=== PATIENT | female | born 1960 | race African-American/Black ===

== ENCOUNTER → 2020-09-27 | Outpatient (CLI) | payer BC, OTHER ==
--- NOTE | 2020-09-27 12:20 | RAD ---
EXAM: Carotid Doppler sonogram. HISTORY: Cerebral infarction. Atherosclerosis. TECHNIQUE: Barrios scale and color Doppler sonographic evaluation of the neck with spectral waveform jace lysis was performed and static images are submitted for review. FINDINGS: The peak systolic velocity within the right common carotid artery is 106 cm/sec. The peak s ystolic velocity within the right internal carotid artery is 62 cm/sec and the end diastolic velocity within the right internal carotid artery is 24 cm/sec. The right ICA/CCA ratio is 0.58. The peak systolic velocity within the left common carotid artery is 115 cm/sec. The peak systolic lyly ocity within the left internal carotid artery is 54 cm/sec and the end diastolic velocity within the left internal carotid artery is 17 cm/sec. The left ICA/CCA ratio is 0.47. There is normal antegrade flow within both vertebral arteries. IMPRESSION: No Doppler evidence of hemodynamically significant stenosis. PQRS Compliance Statement - Stenosis calculations for CT, MR and conventional angiography are based u ferny measurement of the distal ICA diameter in accordance with the NASCET methodology. Stenosis calcu lations for carotid ultrasound studies are derived from validated velocity criteria which are known t o correlate with the NASCET methodology. Electronically signed by: Judi Guan MD (09/27/2020 12:18 PM) [id number]
== END ==
LOC: US 11:14
PROVIDERS: ATTEND Family Medicine
DX: I63.9 Cerebral infarction, unspecified (principal); Z86.73 Personal history of transient ischemic attack (TIA), and cerebral infarction without residual deficits
CPT/HCPCS: 93880

== ENCOUNTER 2021-08-15 01:05 | Inpatient (IN) | payer BC, OTHER ==
[~2021-08-15] VITALS: Ht 175.3 cm; Wt 72.5 kg
--- NOTE | 2021-08-15 01:57 | PHYS DOC ---
Past History Past Medical History: Cancer General Adult HPI: HPI: Patient is a [age] year old [sex] who presents with [] Review of Systems: Review of Systems: Constitutional: Denies fever or chills Eyes: Denies redness or eye pain HENT: Denies nasal congestion or sore throat Respiratory: Denies cough or shortness of breath Cardiovascular: Denies chest pain or palpitations GI: Denies abdominal pain, nausea, or vomiting : Denies dysuria or hematuria Musculoskeletal: Denies back pain or joint pain Integument: Denies rash or skin lesions Neurologic: Denies headache, focal weakness or sensory changes Complete systems were reviewed and found to be within normal limits, except as documented in this note. Current Medications: Current Meds: Current Medications Medications (Trade) Dose Ordered Sig/Juan Francisco Start Time Stop Time Status Last Admin Dose Admin Iohexol (Omnipaque 350 Mg/ml) 100 ml 1X ONCE 08/15/21 01:30 08/15/21 01:31 UNV Piperacillin Sod/ Tazobactam Sod 4.5 gm/Sodium Chloride 50 ml @ 100 mls/hr 1X ONCE 08/15/21 01:30 08/15/21 01:59 UNV Sodium Chloride 1,000 ml @ 1,000 mls/hr 1X ONCE 08/15/21 01:30 08/15/21 02:29 UNV Physical Exam: PE: Constitutional: Well developed, well nourished, no acute distress, non-toxic appearance HENT: Normocephalic, atraumatic Eyes: PERRL, EOMI, conjunctiva normal, no discharge Neck: Normal range of motion, no tenderness, supple Lungs & Thorax: No respiratory distress, equal chest rise and fall Abdomen: Soft, no tenderness Skin: Warm, dry, no erythema, no rash Back: No tenderness, no CVA tenderness Extremities: No tenderness, ROM intact, no edema Neurologic: Alert and oriented X 3, normal motor function, normal sensory function, no focal deficits noted Psychologic: Affect normal, judgment normal EKG: EKG: @0149 Sinus tachycardia at 108bpm, NO ST elevation, QRS 68ms, QT/QTc 298/403ms Radiology/Procedures: Radiology/Procedures: [] Heart Score: C/O Chest Pain: N/A Course & Med Decision Making: Course & Med Decision Making Pertinent Labs and Imaging studies reviewed. (See chart for details) Patient requiring admission for further evaluation and treatment. Discussed with Dr. Mancia (PCP) who is in agreement with admission. Discussed findings and plan with patient, who acknowledges understanding and agreement. Clotilde Disclaimer: Clotilde Disclaimer: This electronic medical record was generated, in whole or in part, using a voice recognition dictation system. Departure Departure: Impression: Primary Impression: Multifocal pneumonia Additional Impression: Hypoxia Disposition: ADMITTED INPATIENT Admitting Physician: Hina Mancia Condition: GUARDED Referrals: HINA MANCIA MD (PCP) Critical Care Time Critical care time was 30 minutes which includes time at bedside, spent in discussion of patient's care with specialists and/or family members, with interpretation of laboratory and/or radiological studies and is exclusive of procedures. ARTHUR DE LA CRUZ DO Aug 15, 2021 01:57
[2021-08-15] MEDS ORDERED: CONTRAST GIVEN. MC PRN (02:15)
[2021-08-15] MEDS ORDERED: IV NORMAL SALINE 1,000ML 1,000 ML IV ONE (02:30)
[2021-08-15] MEDS ORDERED: IOHEXOL 350 MG/ML 100 ML VIAL. IV ONE (02:30)
[2021-08-15] MEDS ORDERED: PIPERACILLIN/TAZOBACTAM 4.5 GM in IV NORMAL SALINE 50ML 50 ML IV ONE (02:30)
[2021-08-15] MEDS ORDERED: IV NORMAL SALINE 50ML 50 ML ONE (02:36)
[2021-08-15] MEDS ORDERED: PIPERACILLIN/TAZOBACTAM 4.5 GM VIAL IV ONE (02:36)
[2021-08-15 02:45] LABS: BASO # 0.1 x10^3/uL (0.0-0.2); BASO % 1 % (0-3); EOS # 0.1 x10^3/uL (0.0-0.7); EOS % 2 % (0-3); HEMATOCRIT 30.1 % (36.0-47.0); HEMOGLOBIN 9.8 g/dL (12.0-15.5); LYMPH # 0.2 x10^3/uL (1.0-4.8); LYMPH % 3 % (24-48); MEAN CORPUSCULAR HEMOGLOBIN 26 pg (25-35); MEAN CORPUSCULAR HGB CONC 33 g/dL (31-37); MEAN CORPUSCULAR VOLUME 81 fL (79-100); MONO # 0.1 x10^3/uL (0.0-1.1); MONO % 1 % (0-9); NEUT # 7.4 x10^3uL (1.8-7.7); NEUT % 93 % (31-73); PLATELET COUNT 221 x10^3/uL (140-400); RED BLOOD COUNT 3.72 x10^6/uL (3.50-5.40); RED CELL DISTRIBUTION WIDTH 19.7 % (11.5-14.5)
[2021-08-15 02:55] LABS: ANION GAP 9 (6-14); BLOOD UREA NITROGEN 20 mg/dL (7-20); BUN/CREATININE RATIO 25 (6-20); CALCIUM 9.5 mg/dL (8.5-10.1); CARBON DIOXIDE 31 mmol/L (21-32); CHLORIDE 95 mmol/L (98-107); CREATININE 0.8 mg/dL (0.6-1.0); GFR 88.5; GLUCOSE 145 mg/dL (70-99); POTASSIUM 3.9 mmol/L (3.5-5.1); SODIUM 135 mmol/L (136-145)
[2021-08-15] MEDS ORDERED: BENZONATATE 100 MG CAPSULE. PO ONE (03:00)
[2021-08-15 03:12] LABS: ALBUMIN 2.9 g/dL (3.4-5.0); ALBUMIN/GLOBULIN RATIO 0.6 (1.0-1.7); ALK PHOS 81 U/L (46-116); ALT (SGPT) 17 U/L (14-59); AST (SGOT) 29 U/L (15-37); MAGNESIUM 2.2 mg/dL (1.8-2.4); TOTAL BILIRUBIN 0.4 mg/dL (0.2-1.0); TOTAL PROTEIN 7.7 g/dL (6.4-8.2)
--- NOTE | 2021-08-15 03:30 | RAD ---
CTA CHEST History: Dyspnea, hypoxia, history of cancer. Comparison: None. Technique: CTA of the pulmonary arteries with intravenous contrast. 3-D postprocessing was performed. Findings: Devices: Left chest Mediport with tip terminating in the region of the lower SVC. Pulmonary arteries: No pulmonary embolism. Aorta and great vessels: No aneurysm or dissection of the aortic arch or thoracic aorta. Thyroid: Heterogeneous thyroid with bilateral approximately 1.5 cm hypodense nodules. Mediastinum and mauricio: No mediastinal masses or adenopathy is seen. Esophagus: The visualized esophagus is normal. Heart: The heart is normal in size. There is no pericardial effusion. Airways, Lungs, Pleura: Right lung volume loss with anterior right lung subpleural reticulation. Diff use right upper middle and lower lobe airspace opacities and left upper lobe airspace opacities. No p leural effusion or pneumothorax. Upper abdomen: Limited evaluation of the upper abdomen is unremarkable. Osseous structures and soft tissues: Heterogeneous right breast, possibly postsurgical with masslike density, calcifications and diffuse skin thickening. Impression: 1. No pulmonary embolism, aortic aneurysm or aortic dissection. 2. Right lung and left upper lobe diffuse airspace opacities concerning for multifocal infection. 3. Heterogeneous multinodular thyroid. Recommend ultrasound for further evaluation. ------ Exposure: One or more of the following individualized dose reduction techniques were utilized for thi s examination: 1. Automated exposure control 2. Adjustment of the mA and/or kV according to patient size 3. Use of iterative reconstruction technique. Electronically signed by: Erasto Bergeron MD (08/15/2021 3:28 AM) [facility]
[2021-08-15] MEDS ORDERED: ACETAMINOPHEN 325 MG TABLET PO PRN (03:45)
[2021-08-15] MEDS ORDERED: ONDANSETRON PF 4 MG/2 ML VIAL. IVP PRN (03:45)
[2021-08-15] MEDS ORDERED: IV NORMAL SALINE 500ML 500 ML ONE ×2 (03:58→03:59)
[2021-08-15] MEDS ORDERED: VANCOMYCIN 1 GM VIAL. ONE (03:59)
[2021-08-15] MEDS ORDERED: VANCOMYCIN 1.75 GM in IV NORMAL SALINE 500ML 500 ML IV ONE (04:00)
[2021-08-15] MEDS: VANCOMYCIN PER PHARMACY MC PRN (05:44)
--- NOTE | 2021-08-15 05:44 | NUR ---
Pharmacy Vancomycin Dosing Note S:Consulted to monitor and dose vancomycin started 08/15/21. O:DIPTI RAM is a 60 year old F with Pneumonia, . Height: 5 feet, 9 inches Weight: 70.5 kg Wayne Body Weight: 66.20 Adjusted Body Weight: 67.92 Dosing Weight: Actual Other Antibiotics: LABS: Last BUN: 20 Last Creatinine: 0.8 Creatinine Clearance: 80 Last WBC: 8 Last Procalcitonin: Tmax (past 24 hours): Microbiology: I/O: Drug Levels: Last level: on at Last dose given 08/15/21 at 0530 Vancomycin Dosing: Loading Dose: 1750 mg x1 Dosing Weight: Actual Target Trough: 15-20 A: Based on: WT AND CRCL P: 1. Begin Vancomycin 1000 mg IV q12h 2. Follow up Trough level on 08/16/21 at 1730 3. Pharmacy will continue to monitor, follow and adjust therapy as needed. MARÍA UNDERWOOD RPH, 08/15/21 0544 Signed: 08/15/21 at 0545 by MARÍA UNDERWOOD RPH PHA Signed: 08/15/21 at 0545 by MARÍA UNDERWOOD RPH PHA
[2021-08-15] MEDS ORDERED: AMOX1TAB61 PO (06:13)
[2021-08-15] MEDS ORDERED: CRESTOR20 MG PO (06:13)
[2021-08-15] MEDS ORDERED: ASCO500C PO (06:13)
[2021-08-15] MEDS ORDERED: BENZ200C47 PO (06:13)
[2021-08-15] MEDS ORDERED: METO-239 PO (06:13)
[2021-08-15] MEDS ORDERED: CLOP75TA PO (06:13)
[2021-08-15] MEDS ORDERED: HYDR-2145 PO (06:13)
[2021-08-15] MEDS ORDERED: VITA25006 PO (06:13)
[2021-08-15] MEDS ORDERED: METF500T16 PO (06:13)
[2021-08-15] MEDS ORDERED: ONDA4TAB7 PO (06:13)
[2021-08-15] MEDS ORDERED: LISI20TA18 PO (06:13)
--- NOTE | 2021-08-15 06:14 | NUR ---
PT ADMITTED TO [facility] VIA EMS ACCOMPANIED BY STAFF MEMBER. PT AMBULATED FROM GURNEY TO BED W/ SUPERVISED ASSISTANCE. PT AOX4. VS OBTAINED. PT HAD NO COMPLAINTS OF PAIN AT THIS TIME. MEDICATION LIST WAS PROVIDED BY PATIENT. POC DISCUSSED W/ VERBALIZED UNDERSTANDING. CALL LIGHT IN REACH WILL CONTINUE TO MONITOR.
[2021-08-15 06:18] VITALS: BP 138/77
[2021-08-15] MEDS ORDERED: DEXTROSE 50% 25 GM / 50ML DISP.SYRIN. IV PRN (10:45)
[2021-08-15 10:52] VITALS: BP 160/82
[2021-08-15] MEDS ORDERED: PIP/TAZO PER PHARMACY MC PRN (11:00)
[2021-08-15] MEDS ORDERED: BENZONATATE 100 MG CAPSULE. PO PRN (11:00)
[2021-08-15] MEDS: DEXAMETHASONE SOD PHOS 4 MG/ML VIAL. IVP SCH ×3 (11:11→21:10)
[2021-08-15] MEDS: METOPROLOL SUCC 24HR ER 25 MG TAB.ER.24H. PO SCH (11:13)
[2021-08-15] MEDS: LISINOPRIL 20 MG TABLET PO SCH (11:14)
[2021-08-15] MEDS: ATORVASTATIN CALCIUM 20 MG TABLET PO SCH (11:14)
[2021-08-15] MEDS: CLOPIDOGREL BISULFATE 75 MG TABLET PO SCH (11:14)
[2021-08-15] MEDS: ASCORBIC ACID 1,000 MG TABLET PO SCH (11:14)
[2021-08-15] MEDS: hydroCHLOROthiazide 25 MG TABLET. PO SCH (11:15)
[2021-08-15] MEDS: PROMETH/CODEINE 6.25/10MG 5 ML SYRUP. PO PRN ×2 (11:16→21:51)
[2021-08-15] MEDS: FOLIC ACID 1 MG TABLET PO SCH (11:19)
[2021-08-15] MEDS: CHOLECALCIFEROL (VITAMIN D3) 1,000 UNIT TABLET PO SCH (11:21)
--- NOTE | 2021-08-15 11:48 | HP ---
DATE OF SERVICE: 08/15/2021 ADMIT DATE: 08/15/2021 HISTORY OF PRESENT ILLNESS: A 60-year-old female with history of breast cancer, radiation to her chest, which has severe damage to the skin. [facility] [place]. However, she developed severe coughing and shortness of breath and was unable to take a breath without getting extremely short of breath. The patient otherwise was brought in because she had an upper lobe pneumonia bilaterally and by the fact that the patient has a situation where she is somewhat immunocompromised, by the fact that she had received and does receive radiation therapy in [place] for her breast cancers. The patient's blood pressure 170/90, she had a pulse of 113, respiratory rate 18, temperature went up to 99.5, oxygen saturation 89 on room air, 2 liters at 93. PAST MEDICAL HISTORY: She has had AFib, congestive heart failure, hypercholesterolemia, hypertension, breast cancer, diabetes chemotherapy, radiation therapy, influenza vaccine. FAMILY HISTORY: Not obtainable. ALLERGIES: No known allergies. SOCIAL HISTORY: Denies smoking, alcohol or drug use. The patient is a FULL CODE. REVIEW OF SYSTEMS: She denies any headaches, visual change, blurred vision, double vision. Does have shortness of breath, a very frequent cough. About every 15-20 seconds, she is coughing. Does not have any nausea, vomiting, melena, hematochezia or hematemesis. Neurologically, she is baseline stable, alert, pleasantly. PHYSICAL EXAMINATION: VITAL SIGNS: As indicated, blood pressure 170/90, respiratory rate 18, pulse 110, temperature 99.3, 2 liters 93. HEENT: The patient's head was atraumatic, normocephalic. Eyes: PERRLA without jaundice, looks in agony. Mouth and throat normal. NECK: Supple. LUNGS: Diminished, poor movement of air. CARDIOVASCULAR: Irregular irregular rhythm. The chest wall is markedly scarred from radiation dill. ABDOMEN: The patient's abdomen is soft, nontender, no rebound or guarding. Positive bowel sounds, no hepatosplenomegaly noted. EXTREMITIES: No clubbing, cyanosis, nor edema. NEUROLOGIC: The patient was alert and oriented x 3. Speech fluent, spontaneous, appropriate. Cranial nerves 2-12 grossly intact. LABORATORY DATA: White count 8, hemoglobin and hematocrit 9 and 30. Sodium 135, BUN and creatinine 20 and 0.8, glucose 145. Albumin 2.9. Serology: Rapid SARS negative. I actually did a CTA, shows multinodular thyroid as well as right and left upper lobe diffuse airspace opacities concerning for multifocal infection. Respiratory rate up to 24. IMPRESSION: Bilateral lobe pneumonia, history of radiation therapy for breast cancer, immunosuppression, essential hypertension, sinus tachycardia, ____ vanco, Zosyn, steroids. Awaiting back from lab for her PCR COVID before we initiate either remdesivir or the other situation protocol for SARS. ALBERTO/LAURA/SHERLYN DR: ALBERTO/terry TID: [id number]
[2021-08-15] MEDS ORDERED: PIPERACILLIN/TAZOBACTAM 4.5 GM in IV NORMAL SALINE 50ML 50 ML IV SCH (12:00)
[2021-08-15] MEDS: INSULIN LISPRO 300 UNITS/3 ML VIAL. SQ SCH ×3 (12:00→17:45)
[2021-08-15] MEDS: BENZONATATE 100 MG CAPSULE. PO PRN ×2 (12:42→21:09)
[2021-08-15] MEDS: PIPERACILLIN/TAZOBACTAM 4.5 GM in IV NORMAL SALINE 50ML 50 ML IV SCH ×2 (13:00→19:00)
[2021-08-15] MEDS: ONDANSETRON ODT 4 MG TAB.RAPDIS PO SCH ×2 (13:39→21:09)
--- NOTE | 2021-08-15 15:22 | NUR ---
Wound/Ostomy Care Wound Type/Assessment: wound consult for right breast wound. Pt is a current pt of [facility], so is well known to team. Pt has been utilizing honey on her wounds at home so will continue this regimen as her wound is improving. Cleansed, measured and redressed wound. No other wounds noted. Treatment Recommendations/Plan: cleanse wound, apply medihoney alginate and cover with foam dressing, change every 2-3 days and PRN. Education provided: WC POC and PU prevention Offloading surface/device: pt is self turn, encouraged turning Q2H Recommended Referrals/Tests: Pt has FU appt in [facility] on 08/24 /Discharge Recommendations for dressings: see above
[2021-08-15 16:20] VITALS: BP 113/69
[2021-08-15] MEDS: VANCOMYCIN 1 GM in IV NORMAL SALINE 250ML 250 ML IV SCH (17:46)
[2021-08-15 18:53] VITALS: BP 107/64
[2021-08-15] MEDS: LACTOBACILLUS RHAMNOSUS GG 1 CAPSULE. PO SCH (21:09)
[2021-08-15] MEDS: ZOLPIDEM 5 MG TABLET. PO PRN (21:09)
[2021-08-15] MEDS: LORazepam 0.5 MG TABLET PO PRN (21:10)
[2021-08-16] MEDS: PIPERACILLIN/TAZOBACTAM 4.5 GM in IV NORMAL SALINE 50ML 50 ML IV SCH ×4 (01:24→19:36)
[2021-08-16] MEDS: PROMETH/CODEINE 6.25/10MG 5 ML SYRUP. PO PRN (03:47)
[2021-08-16 05:00] VITALS: BP 157/84
[2021-08-16] MEDS: DEXAMETHASONE SOD PHOS 4 MG/ML VIAL. IVP SCH ×2 (05:51→20:33)
[2021-08-16] MEDS: VANCOMYCIN 1 GM in IV NORMAL SALINE 250ML 250 ML IV SCH ×2 (05:51→17:51)
[2021-08-16] MEDS: ONDANSETRON ODT 4 MG TAB.RAPDIS PO SCH ×3 (05:52→20:34)
[2021-08-16] MEDS: hydroCHLOROthiazide 25 MG TABLET. PO SCH (07:46)
[2021-08-16] MEDS: BENZONATATE 100 MG CAPSULE. PO PRN (07:46)
[2021-08-16] MEDS: CHOLECALCIFEROL (VITAMIN D3) 1,000 UNIT TABLET PO SCH (07:46)
[2021-08-16] MEDS: ATORVASTATIN CALCIUM 20 MG TABLET PO SCH (07:47)
[2021-08-16] MEDS: FOLIC ACID 1 MG TABLET PO SCH (07:47)
[2021-08-16] MEDS: CLOPIDOGREL BISULFATE 75 MG TABLET PO SCH (07:47)
[2021-08-16] MEDS: LISINOPRIL 20 MG TABLET PO SCH (07:47)
[2021-08-16] MEDS: LACTOBACILLUS RHAMNOSUS GG 1 CAPSULE. PO SCH ×2 (07:47→20:33)
[2021-08-16] MEDS: ASCORBIC ACID 1,000 MG TABLET PO SCH (07:48)
[2021-08-16] MEDS: METOPROLOL SUCC 24HR ER 25 MG TAB.ER.24H. PO SCH (07:48)
[2021-08-16] MEDS: INSULIN LISPRO 300 UNITS/3 ML VIAL. SQ SCH ×3 (07:58→16:54)
[2021-08-16] MEDS ORDERED: VITAMIN D3 PO SCH (09:00)
[2021-08-16] MEDS ORDERED: FOLIC ACID PO SCH (09:00)
[2021-08-16 11:00] VITALS: BP 151/86
--- NOTE | 2021-08-16 11:46 | NUR ---
PT BLOOD SUGAR 396. THIS RN SPOKE WITH DR. ALANIZ IN PERSON. WANTS EXTRA 15 UNITS ON TOP OF SLIDING SCALE.
[2021-08-16] MEDS ORDERED: INSULIN LISPRO 300 UNITS/3 ML VIAL. SQ ONE (12:00)
[2021-08-16 15:15] VITALS: BP 139/74
--- NOTE | 2021-08-16 16:48 | NUR ---
PT AMBULATORY TO THE BATHROOM TODAY WITH ASSISTANCE GETTING OXYGEN SWITCHED FROM WALL TO TANK. PT DOES NOT C/O PAIN. PT STILL C/O SOA. PT INCONTINENT ONCE, STATES SHE DID NOT CALL IN TIME FOR HELP.
[2021-08-16 18:06] LABS: VANC TR 13.7 mcg/mL (10.0-20.0)
[2021-08-16] MEDS: VANCOMYCIN PER PHARMACY MC PRN (18:24)
--- NOTE | 2021-08-16 18:25 | NUR ---
Pharmacy Vancomycin Dosing Note S:Consulted to monitor and dose vancomycin started 08/15/21. O:DIPTI RAM is a 60 year old F with HCAP. LABS: Last BUN: 20 Last Creatinine: 0.8 Creatinine Clearance: 80 Last WBC: 8 Drug Levels: Last Trough level: 13.7 on 08/16/21 at 1730 Last dose given 08/16/21 at 1751 Target Trough: 15-20 A: Based on: SUBTHERAPEUTIC TROUGH LEVEL P: 1. Change Vancomycin to 1250 mg IV q12h with next dose 2. Follow up Trough level in 5-7 days or if renal function change 3. Pharmacy will continue to monitor, follow and adjust therapy as needed. LENY BOUCHER, [facility], 08/16/21 [id number]
--- NOTE | 2021-08-16 18:39 | PN ---
SUBJECTIVE: A 60-year-old female with history of breast cancer, receiving radiation, developed bilateral upper lobe pneumonia, difficulty breathing with exacerbation of COPD secondary to the infection. The patient is feeling a little better today, but still very weak for a number of reasons including her pneumonia and her breast cancer. OBJECTIVE: VITAL SIGNS: Blood pressure 150/86, respiration 18, pulse 94, afebrile, but she is on 2 liters at 96. LUNGS: Diminished throughout, poor movement of air. CARDIOVASCULAR: Regular sinus rhythm. ABDOMEN: Soft, nontender, scaphoid. She is very thin, emaciated patient. No BMI is noted. LABORATORY DATA: Her labs show that her blood sugars are going up on a regular basis, probably from the dexamethasone. We will change her diet as well as decrease the dexamethasone. IMPRESSION: Therefore, bilateral lobe pneumonia, shortness of breath, exacerbation of chronic obstructive pulmonary disease, breast cancer with radiation therapy, immunosuppression, essential hypertension, type 2 diabetes. PLAN: As above. Continue with adjusting her medications for her diabetes, breathing treatments can be started if she is SARS negative. ALBERTO/NIKOLAI/STEPHANIA DR: Flash TID: [id number]
[2021-08-16 19:45] VITALS: BP 169/95
[2021-08-16] MEDS: ZOLPIDEM 5 MG TABLET. PO PRN (20:33)
[2021-08-16] MEDS: IPRATRPIUM/ALBUTEROL 0.5/2.5MG 3 ML NEBU. NEB SCH (21:05)
[2021-08-16 22:55] VITALS: BP 160/88
[2021-08-17] MEDS: PIPERACILLIN/TAZOBACTAM 4.5 GM in IV NORMAL SALINE 50ML 50 ML IV SCH ×4 (01:12→20:17)
[2021-08-17] MEDS ORDERED: LIDOCAINE 2% JELLY 6ML IN APPLICATOR. MM ONE (01:45)
[2021-08-17 05:48] VITALS: BP 169/82
[2021-08-17] MEDS: IPRATRPIUM/ALBUTEROL 0.5/2.5MG 3 ML NEBU. NEB SCH ×3 (05:54→22:30)
[2021-08-17] MEDS: PROMETH/CODEINE 6.25/10MG 5 ML SYRUP. PO PRN ×2 (06:33→17:21)
[2021-08-17] MEDS: ONDANSETRON ODT 4 MG TAB.RAPDIS PO SCH ×3 (06:33→21:06)
[2021-08-17] MEDS: DOCUSATE SODIUM 100 MG CAPSULE PO PRN ×2 (06:33→21:04)
[2021-08-17] MEDS: metFORMIN 500 MG TABLET PO SCH ×2 (08:35→21:03)
[2021-08-17] MEDS: CLOPIDOGREL BISULFATE 75 MG TABLET PO SCH (08:36)
[2021-08-17] MEDS: ATORVASTATIN CALCIUM 20 MG TABLET PO SCH (08:36)
[2021-08-17] MEDS: LACTOBACILLUS RHAMNOSUS GG 1 CAPSULE. PO SCH ×2 (08:36→21:04)
[2021-08-17] MEDS: hydroCHLOROthiazide 25 MG TABLET. PO SCH (08:36)
[2021-08-17] MEDS: CHOLECALCIFEROL (VITAMIN D3) 1,000 UNIT TABLET PO SCH (08:36)
[2021-08-17] MEDS: ASCORBIC ACID 1,000 MG TABLET PO SCH (08:36)
[2021-08-17] MEDS: LISINOPRIL 20 MG TABLET PO SCH (08:36)
[2021-08-17] MEDS: FOLIC ACID 1 MG TABLET PO SCH (08:36)
[2021-08-17] MEDS: DEXAMETHASONE SOD PHOS 4 MG/ML VIAL. IVP SCH ×2 (08:37→21:04)
[2021-08-17] MEDS: METOPROLOL SUCC 24HR ER 25 MG TAB.ER.24H. PO SCH (08:37)
[2021-08-17] MEDS: INSULIN LISPRO 300 UNITS/3 ML VIAL. SQ SCH ×3 (08:39→17:40)
[2021-08-17] MEDS: VANCOMYCIN 1.25 GM in IV NORMAL SALINE 250ML 250 ML IV SCH ×2 (08:54→21:03)
[2021-08-17] MEDS: BENZONATATE 100 MG CAPSULE. PO PRN ×2 (08:55→21:04)
[2021-08-17] MEDS ORDERED: LORazepam 0.5 MG TABLET PO PRN (09:30)
[2021-08-17 11:48] VITALS: BP 167/86
[2021-08-17 15:14] VITALS: BP 126/76
--- NOTE | 2021-08-17 16:03 | RAD ---
Exam Date: 08/17/2021 3:40 PM XR CHEST 2V Indication: Reason: pnuemonia / Spl. Instructions: / History: . Comparison: CT from August 15, 2021 FINDINGS/ IMPRESSION: Lung volumes are low. Left Port-A-Cath terminates in the SVC. The cardiac silhouette is not enlarged. Diffuse bilateral lung infiltrates are noted, right worse th an left, consistent with multifocal pneumonia. Follow-up imaging to resolution is recommended follow ing treatment. No appreciable pleural effusion or pneumothorax. Electronically signed by: Girish Cullen MD (08/17/2021 4:00 PM) GLORIA
[2021-08-17 20:07] VITALS: BP 155/85
[2021-08-17] MEDS: LORazepam 0.5 MG TABLET PO PRN (21:04)
[2021-08-17 23:30] VITALS: BP 163/84
[2021-08-18] MEDS: PIPERACILLIN/TAZOBACTAM 4.5 GM in IV NORMAL SALINE 50ML 50 ML IV SCH ×5 (01:00→20:28)
[2021-08-18] MEDS: IPRATRPIUM/ALBUTEROL 0.5/2.5MG 3 ML NEBU. NEB SCH ×3 (05:14→20:18)
[2021-08-18] MEDS: ONDANSETRON ODT 4 MG TAB.RAPDIS PO SCH ×3 (06:16→20:29)
[2021-08-18 06:41] VITALS: BP 175/86
[2021-08-18] MEDS: INSULIN LISPRO 300 UNITS/3 ML VIAL. SQ SCH ×3 (08:00→17:02)
[2021-08-18] MEDS: DEXAMETHASONE SOD PHOS 4 MG/ML VIAL. IVP SCH ×2 (08:13→20:29)
[2021-08-18] MEDS: FOLIC ACID 1 MG TABLET PO SCH (08:13)
[2021-08-18] MEDS: LACTOBACILLUS RHAMNOSUS GG 1 CAPSULE. PO SCH ×2 (08:13→20:29)
[2021-08-18] MEDS: LISINOPRIL 20 MG TABLET PO SCH (08:13)
[2021-08-18] MEDS: metFORMIN 500 MG TABLET PO SCH ×2 (08:14→20:29)
[2021-08-18] MEDS: CLOPIDOGREL BISULFATE 75 MG TABLET PO SCH (08:14)
[2021-08-18] MEDS: METOPROLOL SUCC 24HR ER 25 MG TAB.ER.24H. PO SCH (08:14)
[2021-08-18] MEDS: CHOLECALCIFEROL (VITAMIN D3) 1,000 UNIT TABLET PO SCH (08:14)
[2021-08-18] MEDS: ATORVASTATIN CALCIUM 20 MG TABLET PO SCH (08:15)
[2021-08-18] MEDS: hydroCHLOROthiazide 25 MG TABLET. PO SCH (08:15)
[2021-08-18] MEDS: ASCORBIC ACID 1,000 MG TABLET PO SCH (08:15)
[2021-08-18] MEDS: VANCOMYCIN 1.25 GM in IV NORMAL SALINE 250ML 250 ML IV SCH (08:25)
[2021-08-18 10:51] VITALS: BP 161/80
[2021-08-18] MEDS: PROMETH/CODEINE 6.25/10MG 5 ML SYRUP. PO PRN (12:55)
[2021-08-18 15:00] VITALS: BP 189/114
[2021-08-18] MEDS ORDERED: levoFLOXacin PER PHARMACY 1 EACH. MC PRN (19:30)
[2021-08-18 20:11] VITALS: BP 176/94
[2021-08-18] MEDS: amLODIPine BESYLATE 10 MG TABLET PO SCH (20:29)
[2021-08-18] MEDS: PROMETH/CODEINE 6.25/10MG 5 ML SYRUP. PO SCH (20:29)
--- NOTE | 2021-08-18 22:11 | PN ---
SUBJECTIVE: A 60-year-old female who came in first with bilateral lobe pneumonia, has a history of breast cancer and severe burning to her chest wall secondary to radiation treatment. Sugars are staying fairly reasonable considering she is on steroids. She is breathing somewhat better, but the x-rays still show this persistent pneumonic process. Diffuse bilateral lung infiltrates are noted consistent with multifocal pneumonia. Presently she has been afebrile for the last 3 days. She is somewhat better. OBJECTIVE: VITAL SIGNS: Blood pressure has been elevated (NC) 189/114, respiratory rate 24, pulse 102, temperature 98, on room air at 90, although it has been as high as 96 on room air. She should be receiving breathing treatments as well and adjust on her sugars accordingly. GENERAL: The patient is alert and oriented. LUNGS: Diminished throughout, poor movement of air. CARDIOVASCULAR: Regular sinus rhythm. S1, S2, without murmur, rub, thrill, or extra heart sound. ABDOMEN: Soft, diffuse tenderness. Marked scarring to the chest wall area secondary to the radiation therapy. IMPRESSION: Bilateral lobe pneumonia, history of immunosuppression secondary to radiation therapy for her breast cancer. Continue with aggressive pulmonary toilet and IV antibiotic therapy. RENEEC/EKT DR: ALBERTO/terry TID: [id number]
[2021-08-18 23:59] VITALS: BP 169/89
[2021-08-19] MEDS: PIPERACILLIN/TAZOBACTAM 4.5 GM in IV NORMAL SALINE 50ML 50 ML IV SCH ×4 (01:18→19:19)
[2021-08-19] MEDS: ONDANSETRON ODT 4 MG TAB.RAPDIS PO SCH ×4 (05:27→20:27)
[2021-08-19] MEDS: IPRATRPIUM/ALBUTEROL 0.5/2.5MG 3 ML NEBU. NEB SCH ×4 (05:58→20:09)
[2021-08-19] MEDS: INSULIN LISPRO 300 UNITS/3 ML VIAL. SQ SCH ×3 (07:58→17:07)
[2021-08-19] MEDS: PROMETH/CODEINE 6.25/10MG 5 ML SYRUP. PO SCH ×3 (08:15→20:26)
[2021-08-19] MEDS: LACTOBACILLUS RHAMNOSUS GG 1 CAPSULE. PO SCH ×2 (08:15→20:27)
[2021-08-19] MEDS: DEXAMETHASONE SOD PHOS 4 MG/ML VIAL. IVP SCH ×2 (08:15→20:26)
[2021-08-19] MEDS: metFORMIN 500 MG TABLET PO SCH ×2 (08:15→20:27)
[2021-08-19] MEDS: hydroCHLOROthiazide 25 MG TABLET. PO SCH (08:15)
[2021-08-19] MEDS: FOLIC ACID 1 MG TABLET PO SCH (08:16)
[2021-08-19] MEDS: ATORVASTATIN CALCIUM 20 MG TABLET PO SCH (08:16)
[2021-08-19] MEDS: LISINOPRIL 20 MG TABLET PO SCH (08:16)
[2021-08-19] MEDS: CLOPIDOGREL BISULFATE 75 MG TABLET PO SCH (08:17)
[2021-08-19] MEDS: CHOLECALCIFEROL (VITAMIN D3) 1,000 UNIT TABLET PO SCH (08:17)
[2021-08-19] MEDS: METOPROLOL SUCC 24HR ER 25 MG TAB.ER.24H. PO SCH ×2 (08:17→20:27)
[2021-08-19] MEDS: amLODIPine BESYLATE 10 MG TABLET PO SCH (08:18)
[2021-08-19] MEDS: ASCORBIC ACID 1,000 MG TABLET PO SCH (08:18)
[2021-08-19] MEDS ORDERED: amLODIPine BESYLATE 5 MG TABLET PO SCH (09:00)
[2021-08-19 11:27] VITALS: BP 150/76
[2021-08-19] MEDS: BENZONATATE 100 MG CAPSULE. PO PRN ×2 (12:34→20:27)
[2021-08-19] MEDS ORDERED: BENZONATATE 100 MG CAPSULE. PO PRN (12:45)
[2021-08-19] MEDS: hydrALAZINE 10 MG TABLET PO SCH ×2 (13:27→20:26)
--- NOTE | 2021-08-19 13:41 | NUR ---
PATIENT HAD HAS SCHEDULED ZOFRAN FOR 2PM, PATIENT DID NOT WANT TO TAKE IT, STATED SHE DON'T NEED IT, AND FEELING FINE, ZOFRAN WAS NOT ADMINISTERED.
[2021-08-19 15:03] VITALS: BP 134/68
[2021-08-19 19:41] VITALS: BP 153/92
--- NOTE | 2021-08-19 20:55 | PN ---
DATE: 08/19/2021 SUBJECTIVE: A 60-year-old female with history of bilateral lobe pneumonia, history of breast cancer with radiation therapy to her chest wall, quite severe. She is still having bronchospasm, coughing spasms. I have adjusted some of her medications. OBJECTIVE: VITAL SIGNS: Blood pressure was elevated, this came down to 134/60, respiration 18, pulse 93, afebrile. The patient's oxygen saturation 93%. LUNGS: Diminished throughout, but basically clear. CARDIOVASCULAR: Regular sinus rhythm, occasional dropped beat. ABDOMEN: Soft, nontender. IMPRESSION AND PLAN: Chest wall markedly scarred from the radiation therapy. The patient otherwise is eating fairly well and continues to be at a fairly good progress. We will repeat chest x-ray in the morning and make further evaluation on her situation with the multiplicity of medical problems including ___bilateral lobe pneumonia, history of immunosuppression secondary to radiation therapy for breast cancer, shortness of breath and bronchospasm and essential hypertension. JORGE DR: Flash TID: [id number]
[2021-08-19 23:01] VITALS: BP 152/79
[2021-08-20] MEDS: PIPERACILLIN/TAZOBACTAM 4.5 GM in IV NORMAL SALINE 50ML 50 ML IV SCH ×4 (01:45→18:38)
[2021-08-20] MEDS: IPRATRPIUM/ALBUTEROL 0.5/2.5MG 3 ML NEBU. NEB SCH ×4 (05:00→21:01)
[2021-08-20] MEDS: ONDANSETRON ODT 4 MG TAB.RAPDIS PO SCH ×3 (05:40→21:52)
[2021-08-20] MEDS: INSULIN LISPRO 300 UNITS/3 ML VIAL. SQ SCH ×3 (08:00→17:09)
[2021-08-20] MEDS: CHOLECALCIFEROL (VITAMIN D3) 1,000 UNIT TABLET PO SCH (09:03)
[2021-08-20] MEDS: ATORVASTATIN CALCIUM 20 MG TABLET PO SCH (09:04)
[2021-08-20] MEDS: LACTOBACILLUS RHAMNOSUS GG 1 CAPSULE. PO SCH ×2 (09:04→21:51)
[2021-08-20] MEDS: amLODIPine BESYLATE 10 MG TABLET PO SCH (09:04)
[2021-08-20] MEDS: hydroCHLOROthiazide 25 MG TABLET. PO SCH (09:04)
[2021-08-20] MEDS: FOLIC ACID 1 MG TABLET PO SCH (09:05)
[2021-08-20] MEDS: ASCORBIC ACID 1,000 MG TABLET PO SCH (09:05)
[2021-08-20] MEDS: METOPROLOL SUCC 24HR ER 25 MG TAB.ER.24H. PO SCH ×2 (09:05→21:50)
[2021-08-20] MEDS: hydrALAZINE 10 MG TABLET PO SCH ×3 (09:05→21:50)
[2021-08-20] MEDS: CLOPIDOGREL BISULFATE 75 MG TABLET PO SCH (09:05)
[2021-08-20] MEDS: PROMETH/CODEINE 6.25/10MG 5 ML SYRUP. PO SCH ×3 (09:06→21:50)
[2021-08-20] MEDS: DEXAMETHASONE SOD PHOS 4 MG/ML VIAL. IVP SCH ×2 (09:06→21:50)
[2021-08-20] MEDS: metFORMIN 500 MG TABLET PO SCH ×2 (09:06→21:51)
[2021-08-20 09:24] VITALS: BP 152/79
[2021-08-20] MEDS: DOCUSATE SODIUM 100 MG CAPSULE PO PRN (09:30)
--- NOTE | 2021-08-20 09:30 | RAD ---
EXAMINATION: XR CHEST 2V CLINICAL HISTORY: Pneumonia TECHNIQUE: XR CHEST 2V COMPARISON: 08/17/2021 FINDINGS/ IMPRESSION: Slightly improved aeration of the right lung with persistent diffuse patchy airspace disease. Questio nable left perihilar patchy airspace disease. No evidence of pleural effusion or pneumothorax. Stable heart size. Cannulated left internal jugular Port-A-Cath remains in similar position. Electronically signed by: Gerardo Boone DO (08/20/2021 9:27 AM) [id number]
[2021-08-20 11:15] VITALS: BP 167/91
[2021-08-20 15:49] VITALS: BP_SYST 118; BP_SYST 134; BP_DIAS 74; BP_DIAS 80
--- NOTE | 2021-08-20 17:52 | NUR ---
Wound/Ostomy Care Wound Type/Assessment: wound follow up for right breast wound. Pt is a current pt of [facility], so is well known to team. Pt has been utilizing honey on her wounds at home so will continue this regimen as her wound is improving. Cleansed, measured and redressed wound. No other wounds noted. Treatment Recommendations/Plan: cleanse wound, apply medihoney alginate and cover with foam dressing, change every 2-3 days and PRN. Education provided: WC POC and PU prevention Offloading surface/device: pt is self turn, encouraged turning Q2H Recommended Referrals/Tests: Pt has FU appt in [facility] on 08/24, will cancel and she will call to reschedule after she discharges. Discharge Recommendations for dressings: see above
[2021-08-20 19:00] VITALS: BP 176/89
--- NOTE | 2021-08-20 22:07 | PN ---
DATE: 08/20/2021 SUBJECTIVE: The patient is a 60-year-old female with history of breast cancer and multiple radiation dill to her chest wall. The patient is having difficulty with her breathing, has bilateral lobe pneumonia. Chest x-ray actually looks worse. OBJECTIVE: VITAL SIGNS: Blood pressure 130/80, respiratory rate 18, pulse 105, afebrile, 95% on room air. LUNGS: Diminished throughout, but basically clear. CARDIOVASCULAR: Regular sinus rhythm. ABDOMEN: Soft, nontender, no rebounding, no guarding. Positive bowel sounds, no hepatosplenomegaly was noted. EXTREMITIES: Without clubbing, cyanosis; nor edema. The patient very cachectic appearing. ASSESSMENT AND PLAN: We will continue to monitor the patient. IV antibiotic therapy, aggressive pulmonary toilet and make further evaluation on her as indicated per those results. Try to get her down to [facility] today. They were short of beds and unable to take her in transfer. Otherwise, we will continue to monitor patient accordingly, make further evaluation on her for her bilateral lobe pneumonia, history of immunosuppression secondary to radiation therapy for breast cancer, aggressive pulmonary toilet, IV antibiotic therapy and continue to monitor the patient accordingly. Try to get her transferred down to [facility] as soon as possible. TERRIE DR: Flash TID: [id number]
[2021-08-20 23:00] VITALS: BP 157/88
[2021-08-21] MEDS: PIPERACILLIN/TAZOBACTAM 4.5 GM in IV NORMAL SALINE 50ML 50 ML IV SCH ×4 (01:03→20:00)
[2021-08-21 05:00] VITALS: BP 133/71
[2021-08-21] MEDS: IPRATRPIUM/ALBUTEROL 0.5/2.5MG 3 ML NEBU. NEB SCH ×4 (05:57→22:07)
[2021-08-21] MEDS: ONDANSETRON ODT 4 MG TAB.RAPDIS PO SCH ×3 (06:09→21:32)
[2021-08-21] MEDS: INSULIN LISPRO 300 UNITS/3 ML VIAL. SQ SCH ×3 (08:00→17:00)
[2021-08-21] MEDS: ATORVASTATIN CALCIUM 20 MG TABLET PO SCH (08:23)
[2021-08-21] MEDS: metFORMIN 500 MG TABLET PO SCH ×2 (08:23→21:32)
[2021-08-21] MEDS: PROMETH/CODEINE 6.25/10MG 5 ML SYRUP. PO SCH ×3 (08:23→21:32)
[2021-08-21] MEDS: CLOPIDOGREL BISULFATE 75 MG TABLET PO SCH (08:23)
[2021-08-21] MEDS: LACTOBACILLUS RHAMNOSUS GG 1 CAPSULE. PO SCH ×2 (08:23→21:31)
[2021-08-21] MEDS: hydroCHLOROthiazide 25 MG TABLET. PO SCH (08:23)
[2021-08-21] MEDS: FOLIC ACID 1 MG TABLET PO SCH (08:24)
[2021-08-21] MEDS: CHOLECALCIFEROL (VITAMIN D3) 1,000 UNIT TABLET PO SCH (08:24)
[2021-08-21] MEDS: METOPROLOL SUCC 24HR ER 25 MG TAB.ER.24H. PO SCH ×2 (08:25→21:32)
[2021-08-21] MEDS: amLODIPine BESYLATE 10 MG TABLET PO SCH (08:25)
[2021-08-21] MEDS: DEXAMETHASONE SOD PHOS 4 MG/ML VIAL. IVP SCH ×2 (08:26→21:32)
[2021-08-21] MEDS: hydrALAZINE 10 MG TABLET PO SCH ×3 (08:26→21:32)
[2021-08-21] MEDS ORDERED: FLUTICASONE 50MCG/NASAL SPRAY 16GM BOTTLE. NS PRN (08:45)
[2021-08-21] MEDS: BENZONATATE 100 MG CAPSULE. PO PRN (10:52)
[2021-08-21] MEDS: ASCORBIC ACID 1,000 MG TABLET PO SCH (10:52)
[2021-08-21 11:38] VITALS: BP 130/69
[2021-08-21 15:20] VITALS: BP 136/74
[2021-08-21 20:00] VITALS: BP 133/74
[2021-08-21 23:46] VITALS: BP 146/78
--- NOTE | 2021-08-22 00:49 | PN ---
SUBJECTIVE: A 60-year-old female with history of breast cancer, exacerbation of chronic obstructive pulmonary disease, pneumonia, making some progress. Her chest x-rays do show some improvement. She is afebrile, blood pressure 136/74, respiration 18, pulse 83, afebrile. Consult with Dr. Ramirez. She is stable here. So continue with present course of therapy which she is on and will continue to be monitored carefully. OBJECTIVE: GENERAL: The patient is making good progress. LUNGS: Diminished, but clear. CARDIOVASCULAR: Stable. IMPRESSION AND PLAN: Bilateral lobe pneumonia, immunosuppression with breast cancer. Plan as above. ALBERTO/MICHELLE DR: Flash TID: [id number]
[2021-08-22] MEDS: PIPERACILLIN/TAZOBACTAM 4.5 GM in IV NORMAL SALINE 50ML 50 ML IV SCH ×4 (01:05→19:32)
[2021-08-22] MEDS: IPRATRPIUM/ALBUTEROL 0.5/2.5MG 3 ML NEBU. NEB SCH ×4 (05:46→21:49)
[2021-08-22] MEDS: ONDANSETRON ODT 4 MG TAB.RAPDIS PO SCH ×3 (06:07→20:30)
[2021-08-22 06:09] VITALS: BP 130/72
[2021-08-22] MEDS: INSULIN LISPRO 300 UNITS/3 ML VIAL. SQ SCH ×3 (08:00→16:51)
[2021-08-22] MEDS: PROMETH/CODEINE 6.25/10MG 5 ML SYRUP. PO SCH ×3 (08:20→20:30)
[2021-08-22] MEDS: CHOLECALCIFEROL (VITAMIN D3) 1,000 UNIT TABLET PO SCH (08:21)
[2021-08-22] MEDS: LACTOBACILLUS RHAMNOSUS GG 1 CAPSULE. PO SCH ×2 (08:21→20:29)
[2021-08-22] MEDS: ASCORBIC ACID 1,000 MG TABLET PO SCH (08:21)
[2021-08-22] MEDS: metFORMIN 500 MG TABLET PO SCH ×2 (08:21→20:30)
[2021-08-22] MEDS: amLODIPine BESYLATE 10 MG TABLET PO SCH (08:22)
[2021-08-22] MEDS: ATORVASTATIN CALCIUM 20 MG TABLET PO SCH (08:22)
[2021-08-22] MEDS: METOPROLOL SUCC 24HR ER 25 MG TAB.ER.24H. PO SCH ×2 (08:22→20:30)
[2021-08-22] MEDS: hydroCHLOROthiazide 25 MG TABLET. PO SCH (08:23)
[2021-08-22] MEDS: hydrALAZINE 10 MG TABLET PO SCH ×3 (08:23→20:30)
[2021-08-22] MEDS: CLOPIDOGREL BISULFATE 75 MG TABLET PO SCH (08:23)
[2021-08-22] MEDS: FOLIC ACID 1 MG TABLET PO SCH (08:23)
[2021-08-22] MEDS: DEXAMETHASONE SOD PHOS 4 MG/ML VIAL. IVP SCH ×2 (08:24→20:30)
[2021-08-22 11:34] VITALS: BP 100/68
[2021-08-22 15:26] VITALS: BP 116/69
[2021-08-22 19:00] VITALS: BP 145/79
[2021-08-22 23:00] VITALS: BP 135/70
--- NOTE | 2021-08-22 23:01 | PN ---
SUBJECTIVE: This is a 60-year-old female with bilateral lobe pneumonia, immunocompromised, on radiation therapy for breast cancer. The patient is resting fairly comfortably, making fairly good progress overall. The patient is alert and oriented. OBJECTIVE: VITAL SIGNS: The patient's blood pressure 110/70, respiratory rate 20, pulse in the 90s, afebrile, on room air at 92. GENERAL: The patient is alert and oriented. LUNGS: Diminished throughout, but clear. CARDIOVASCULAR: Regular sinus rhythm, S1, S2. ABDOMEN: Soft, nontender. EXTREMITIES: No clubbing, cyanosis or edema. NEUROLOGIC: Intact. IMPRESSION: Bilateral lobe pneumonia. PLAN: Continue on present drug regimen. JOYCE DR: Flash TID: [id number]
[2021-08-23] MEDS: PIPERACILLIN/TAZOBACTAM 4.5 GM in IV NORMAL SALINE 50ML 50 ML IV SCH ×3 (00:33→13:32)
[2021-08-23 05:00] VITALS: BP 144/76
[2021-08-23] MEDS: ONDANSETRON ODT 4 MG TAB.RAPDIS PO SCH ×2 (06:08→13:43)
[2021-08-23] MEDS: IPRATRPIUM/ALBUTEROL 0.5/2.5MG 3 ML NEBU. NEB SCH ×2 (06:19→13:30)
[2021-08-23] MEDS: INSULIN LISPRO 300 UNITS/3 ML VIAL. SQ SCH ×2 (08:00→12:00)
[2021-08-23] MEDS: PROMETH/CODEINE 6.25/10MG 5 ML SYRUP. PO SCH ×2 (08:54→13:43)
[2021-08-23] MEDS: amLODIPine BESYLATE 10 MG TABLET PO SCH (08:55)
[2021-08-23] MEDS: ATORVASTATIN CALCIUM 20 MG TABLET PO SCH (08:55)
[2021-08-23] MEDS: CHOLECALCIFEROL (VITAMIN D3) 1,000 UNIT TABLET PO SCH (08:56)
[2021-08-23] MEDS: metFORMIN 500 MG TABLET PO SCH (08:56)
[2021-08-23] MEDS: LACTOBACILLUS RHAMNOSUS GG 1 CAPSULE. PO SCH (08:56)
[2021-08-23] MEDS: hydroCHLOROthiazide 25 MG TABLET. PO SCH (08:56)
[2021-08-23] MEDS: CLOPIDOGREL BISULFATE 75 MG TABLET PO SCH (08:57)
[2021-08-23] MEDS: ASCORBIC ACID 1,000 MG TABLET PO SCH (08:57)
[2021-08-23] MEDS: hydrALAZINE 10 MG TABLET PO SCH ×2 (08:57→13:36)
[2021-08-23] MEDS: FOLIC ACID 1 MG TABLET PO SCH (08:58)
[2021-08-23] MEDS: DEXAMETHASONE SOD PHOS 4 MG/ML VIAL. IVP SCH (08:58)
[2021-08-23] MEDS: METOPROLOL SUCC 24HR ER 25 MG TAB.ER.24H. PO SCH (08:59)
[2021-08-23 10:34] VITALS: BP 124/72
[2021-08-23] MEDS ORDERED: DEXA4TAB63 PO (12:25)
[2021-08-23] MEDS ORDERED: FLUT16SP21 NS (12:25)
[2021-08-23] MEDS ORDERED: LACT1CAP19 PO (12:25)
[2021-08-23] MEDS ORDERED: Folic Acid PO (12:25)
[2021-08-23] MEDS ORDERED: LEVO500T9 PO (12:25)
[2021-08-23] MEDS ORDERED: DOCU-109 PO (12:25)
[2021-08-23] MEDS ORDERED: HYDR-2867 PO (12:25)
[2021-08-23] MEDS ORDERED: IPRA3AMP29 NEB (12:25)
[2021-08-23] MEDS ORDERED: AMLO-187 PO (12:25)
--- NOTE | 2021-08-23 12:40 | NUR ---
Nursing note Patient states she has 4 episodes of running stool since last night. RN saw some stool on brief, stool mucusy, brown, with very strong odor. Dr. Mancia notified. Two order placed per MD's request: a stool sample for C-diff, Vancomycin oral 125 mg 4 times daily x 10 days. Pharmacy notified. Will continue to monitor pt.
[2021-08-23] MEDS ORDERED: VANCOMYCIN 125 MG/2.5 ML ORAL SOLUTION. PO SCH (13:00)
[2021-08-23 13:36] VITALS: BP 113/70
--- NOTE | 2021-08-23 13:48 | DISCH ---
HOME HEALTH DISCHARGE/MEDS DISCHARGE INFORMATION: Discharge Date: Aug 23, 2021 Final Diagnosis: Problems Medical Problems: (1) Hypoxia Status: Acute (2) Multifocal pneumonia Status: Acute Condition on Discharge: Stable CODE STATUS: Code Status: Full HOME HEALTH: Face to Face: I certify this patient is under my care and that I, or a nurse practitioner or physician's medical office receptionist assistant working with me, had a face to face encounter that meets the physician face to face encounter requirements with this patient on August 23, 2021. Medical Condition(s): DM, HTN, Pneumonia Snf For: Assess Cardiopulm Status, Assess & Educate Safety, Assess/Skilled Observatio Homebound Status Met By: Extreme weakness w/ amb., Fatigue w/ amb. POST DISCHARGE ORDERS: Activity Instructions for Disc: Activity as tolerated Weight Bearing Status after Di: No restrictions DIET AFTER DISCHARGE: ADA CERTIFICATION STATEMENT: Certification Statement: Based on the above finding, I certify that this patient is confined to the home and needs intermittent jail care, physical therapy and/or speech therapy, or continues to need occupational therapy.~ This patient is under my care, and I have initiated the establishment of the plan of care.~ This patient will be followed by myself or a community physician who will periodically review the plan of care. DISCHARGE MEDICATIONS: Home Meds Reported Medications Lisinopril (LISINOPRIL) 20 Mg Tablet, 1 TAB PO DAILY for HTN, #30 TAB 5 Refills 08/15/21 Hydrochlorothiazide (HYDROCHLOROTHIAZIDE TABLET ) 25 Mg Tablet, 25 MG PO DAILY for DIURETIC, TAB 0 Refills 08/15/21 Rosuvastatin Calcium (CRESTOR) 20 Mg Tablet, 1 TAB PO DAILY for HLD, #30 TAB 5 Refills 08/15/21 Clopidogrel Bisulfate (CLOPIDOGREL) 75 Mg Tablet, 1 TAB PO DAILY for afib, #90 TAB 1 Refill 08/15/21 Metformin Hcl (METFORMIN HCL) 500 Mg Tablet, 2 TAB PO BID for DM, #60 TAB 3 Refills 08/15/21 Metoprolol Succinate (METOPROLOL SUCCINATE ( XL )) 25 Mg Tab.er.24h, 1 TAB PO DAILY for htn, #30 TAB 5 Refills 08/15/21 Vitamin D3/Folic Acid (Noxifol-D3 2,500 Unit-1 mg Tab) 2,500 Unit Tablet, 5000 UNIT PO DAILY for supplement, TAB 08/15/21 Ascorbic Acid (VITAMIN C) 500 Mg Capsule.er, 2 CAP PO DAILY for SUPPLEMENT for 30 Days, #60 CAP 0 Refills 08/15/21 Ondansetron Hcl (ZOFRAN) 4 Mg Tablet, 2 TAB PO Q8HRS for NAUSEA, #30 TAB 08/15/21 Amoxicillin/Potassium Clav (AUGMENTIN 875-125 TABLET) 1 Each Tablet, 1 TAB PO BID for . for 7 Days, #14 TAB 0 Refills 08/15/21 Benzonatate (BENZONATATE) 200 Mg Capsule, 1 CAP PO PRN TID PRN for cough for 7 Days, #21 CAP 0 Refills 08/15/21 HINA ALANIZ MD Aug 23, 2021 13:48
[2021-08-23] MEDS ORDERED: LOPERAMIDE 2 MG CAPSULE PO ONE (15:00)
--- NOTE | 2021-08-23 16:30 | NUR ---
Nursing note: Stool sample was rejected by Lab d/t lack of the lab's criteria for C-diff testing. Doctor Gavino notified. Vancomyin and Levofloxacin discontinued per doctor's order. Loperamide 4 mg given per MD's order for diarrhea. Pt discharged to home with home health. Prior to discharge Pt was alert, oriented, pleasant, cooperative, and ambulatory independently. IV port extension and tele box removed. Discharge instruction given to patient. Pt was picked up by her .
== END 2021-08-23 16:54 | disposition home health service (06) | DRG 190 ==
LOC: ER 01:05 → 1 SOUTH 04:10
PROVIDERS: ADMIT Family Medicine; ATTEND Family Medicine
DX: J44.0 Chronic obstructive pulmonary disease with (acute) lower respiratory infection (principal); J18.9 Pneumonia, unspecified organism; D84.9 Immunodeficiency, unspecified; J44.1 Chronic obstructive pulmonary disease with (acute) exacerbation; C50.919 Malignant neoplasm of unspecified site of unspecified female breast; E11.9 Type 2 diabetes mellitus without complications; E78.00 Pure hypercholesterolemia, unspecified; I11.0 Hypertensive heart disease with heart failure; I48.91 Unspecified atrial fibrillation; I50.9 Heart failure, unspecified; J98.01 Acute bronchospasm; R09.02 Hypoxemia; Z85.3 Personal history of malignant neoplasm of breast; Z92.3 Personal history of irradiation; Z20.822 Contact with and (suspected) exposure to COVID-19
CPT/HCPCS: 36415; 71046; 71275; 80053; 80202; 82553; 82947; 83605; 83735; 83880; 84484; 85025; 87040; 87426; 93005; 94640; 94760; 96365; J1100; J1815; J1956; J2543; J3370; J7040; J7050; Q0162; Q9967; U0003; 97110; 97116; 97530; 97535; 99285-25; J7030